=== PATIENT | female | born 1990 | race Caucasian/White ===

== ENCOUNTER 2019-09-26 17:28 | Emergency (ER) | payer OTHER ==
[~2019-09-26] VITALS: Ht 165.1 cm; Wt 68.0 kg
[2019-09-26 17:35] VITALS: BP_SYST 150
--- NOTE | 2019-09-26 17:35 | NUR ---
Patient to ER bed 4 to gown for evaluation. Side rails up. Report given to DASHA.
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
--- NOTE | 2019-09-26 17:40 | NUR ---
ER Dr. Alcala at bedside examining patient.
--- NOTE | 2019-09-26 17:47 | NUR ---
Patient ambulated to the bathroom with a steady gait. Urine specimen collected.
--- NOTE | 2019-09-26 17:50 | NUR ---
Patient is taken to CT via gurney, in stable condition.
--- NOTE | 2019-09-26 18:01 | NUR ---
Patient is back from CT in stable condition.
[2019-09-26 18:33] VITALS: BP_SYST 130
--- NOTE | 2019-09-26 18:35 | NUR ---
Patient given written and verbal discharge instructions and verbalizes understanding. ER MD discussed with patient the results and treatment provided. Patient in stable condition. ID arm band removed. Rx of Naproxen given. Patient educated on pain management and to follow up with PMD. Pain Scale 0/10. Opportunity for questions provided and answered. Medication side effect fact sheet provided.
== END 2019-09-26 18:35 | disposition home or self-care (01) ==
LOC: SED 17:28
DX: S13.4XXA Sprain of ligaments of cervical spine, initial encounter (principal); S00.83XA Contusion of other part of head, initial encounter; V49.49XA Driver injured in collision with other motor vehicles in traffic accident, initial encounter; Y93.89 Activity, other specified; Y92.413 State road as the place of occurrence of the external cause; Y99.8 Other external cause status
CPT/HCPCS: 70450-TC; 70490; 99285